=== PATIENT | male | born 1965 | race Caucasian/White ===

== ENCOUNTER 2017-06-27 05:09 | Inpatient (IN) | payer MEDICAID ==
[~2017-06-27] VITALS: Ht 175.3 cm; Wt 65.3 kg
[2017-06-27] MEDS ORDERED: HALOPERIDOL LACTATE 5 MG/ML VIAL IM ONE (05:30)
[2017-06-27] MEDS ORDERED: LORazepam 2 MG/ML VIAL IM ONE (05:30)
[2017-06-27] MEDS ORDERED: DiphenhydrAMINE HCL 50 MG/ML VIAL IM ONE ×2 (05:45)
[2017-06-27] MEDS ORDERED: LORazepam 2 MG TABLET PO PRN (06:15)
[2017-06-27] MEDS ORDERED: ZOLPIDEM TARTRATE 10 MG TABLET PO PRN (06:15)
[2017-06-27 06:38] LABS: EOSINOPHILS % (AUTO) 1.4 % (1.0-6.0); HEMATOCRIT 38.5 % (41-53); HEMOGLOBIN 13.3 g/dL (13.5-17.5); LYMPHOCYTES # (AUTO) 1.3 K/uL (1.0-4.8); LYMPHOCYTES % (AUTO) 20.1 % (22.0-44.0); MEAN CORPUSCULAR HEMOGLOBIN 31.7 pg (26.0-34.0); MEAN CORPUSCULAR HGB CONC 34.5 G/dL (31.0-37.0); MEAN CORPUSCULAR VOLUME 92 fL (80-100); MONOCYTES # (AUTO) 0.3 K/uL (0.1-1.0); NEUTROPHILS # (AUTO) 4.7 K/uL (1.8-7.7); NEUTROPHILS % (AUTO) 74.5 % (40.0-70.0); PLATELET COUNT (AUTO) 231 K/uL (150-450); RED BLOOD CELL COUNT(AUTO) 4.18 MIL/uL (4.50-5.90); RED CELL DISTRIBUTION WIDTH 14.1 % (11.5-14.5); WHITE BLOOD COUNT (AUTO) 6.3 K/uL (4.5-11.0)
[2017-06-27 06:45] LABS: ANION GAP 13 mmol/L (8-16); CALCIUM, TOTAL 9.3 mg/dL (8.8-10.5); CARBON DIOXIDE 24 mmol/L (22-29); CHLORIDE 107 mmol/L (98-107); CREATININE 1.31 mg/dL (0.60-1.30); GLOMERULAR FILTR. RATE CALC 58 mL/min (>60); POTASSIUM 3.3 mmol/L (3.5-5.1); SODIUM SERUM 144 mmol/L (136-145); UREA NITROGEN, BLOOD 34 mg/dL (7-18)
[2017-06-27 06:51] LABS: ALANINE AMINOTRANSFERASE 34 U/L (12-78); ALBUMIN 3.8 g/dL (3.4-5.0); ASPARTATE AMINOTRANSFERASE 23 U/L (15-37); BILIRUBIN,TOTAL 1.2 mg/dL (0.1-1.0); CHOL/HDL RATIO 2.4 (4.2-7.3); TOTAL PROTEIN, SERUM 7.7 g/dL (6.4-8.2)
[2017-06-27 18:00] VITALS: BP 122/70
[2017-06-27 18:10] VITALS: BP 122/70
[2017-06-27] MEDS ORDERED: INFLUENZA VIRUS VACCINE QVS 2017-18 (3YR+)/PF 60 MCG/0.5 ML SYRINGE IM ONE (18:30)
[2017-06-27] MEDS ORDERED: POTASSIUM CHLORIDE 20 MEQ ER TABLET PO ONE (20:30)
[2017-06-28 07:08] VITALS: BP 120/69
[2017-06-28 08:07] VITALS: BP 112/64
[2017-06-28 16:00] VITALS: BP 115/68
[2017-06-28] MEDS: HALOPERIDOL 5 MG TABLET PO PRN (16:26)
[2017-06-28] MEDS: RisperiDONE 2 MG TABLET PO SCH (16:26)
[2017-06-28] MEDS ORDERED: ACETAMINOPHEN 325 MG TABLET PO PRN (16:45)
[2017-06-28] MEDS ORDERED: IBUPROFEN 400 MG TABLET PO PRN (16:45)
[2017-06-29 06:34] VITALS: BP 123/68
[2017-06-29 08:11] VITALS: BP 108/62
[2017-06-29 08:49] LABS: HEMOGLOBIN A1C 4.8 % (4.5-6.2)
[2017-06-29] MEDS: RisperiDONE 2 MG TABLET PO SCH ×2 (09:22→16:35)
[2017-06-29 09:23] LABS: THYROID STIMULATING HORMONE 0.67 uIU/mL (0.36-3.74)
[2017-06-29 16:00] VITALS: BP 114/65
[2017-06-29] MEDS: HALOPERIDOL 5 MG TABLET PO PRN (16:34)
[2017-06-30 06:43] VITALS: BP 133/82
[2017-06-30] MEDS: RisperiDONE 2 MG TABLET PO SCH ×2 (09:06→16:15)
[2017-06-30 09:10] VITALS: BP 116/64
[2017-06-30 16:48] VITALS: BP 116/64
[2017-06-30 16:51] VITALS: BP 116/64
[2017-07-01 07:05] VITALS: BP 120/77
[2017-07-01] MEDS: RisperiDONE 2 MG TABLET PO SCH (08:10)
[2017-07-01 08:24] VITALS: BP 122/80
[2017-07-01] MEDS ORDERED: RISP2 PO (09:44)
== END 2017-07-01 11:00 | disposition home or self-care (01) | DRG 750 ==
LOC: EMS 05:11 → B3A 15:23
DX: F20.0 Paranoid schizophrenia (principal); Z91.19 Patient's noncompliance with other medical treatment and regimen; E87.6 Hypokalemia; D64.9 Anemia, unspecified; F41.9 Anxiety disorder, unspecified; F17.210 Nicotine dependence, cigarettes, uncomplicated; F19.10 Other psychoactive substance abuse, uncomplicated; Z53.29 Procedure and treatment not carried out because of patient's decision for other reasons
CPT/HCPCS: 83036; 84132; 84443; 96372; 99285; G0480; J1200; J1630; J2060